=== PATIENT | female | born 1970 | race Two or more races ===

== ENCOUNTER 2019-02-04 10:09 | Emergency (ER) | payer MEDICAID, OTHER ==
[~2019-02-04] VITALS: Ht 170.2 cm; Wt 67.6 kg
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
--- NOTE | 2019-02-04 10:50 | NUR ---
URINE RETRIEVED AND SENT TO LAB.
[2019-02-04 10:58] LABS: APPEARANCE,URINE Clear (CLEAR); BILIRUBIN,URINE Negative (NEGATIVE); BLOOD, URINE Negative Ery/uL (NEGATIVE); COLOR,URINE Yellow (YELLOW); KETONES,URINE Negative (NEGATIVE); LEUKOCYTE ESTERASE ,URINE Negative (NEGATIVE); NITRITE, URINE Negative (NEGATIVE); PROTEIN,URINE Negative (NEGATIVE); UGLUCOSE Negative (NEGATIVE); UROBILINOGEN,URINE 0.2 EU/dL (0.2)
[2019-02-04 10:59] LABS: BASOPHILS % (AUTO) 0.9 % (0.0-2.0); EOSINOPHILS % (AUTO) 0.3 % (0.0-6.0); HEMATOCRIT 40 % (33-45); HEMOGLOBIN 12.9 g/dL (11.5-14.8); LYMPHOCYTES # (AUTO) 1.5 /CMM (0.8-4.8); LYMPHOCYTES % (AUTO) 35.5 % (20.0-44.0); MEAN CORPUSCULAR HGB CONC 32 g/dl (31.0-36.0); MEAN CORPUSCULAR VOLUME 78 fL (82-100); MONOCYTES # (AUTO) 0.2 /CMM (0.1-1.30); MONOCYTES % (AUTO) 5.5 % (2.0-12.0); NEUTROPHILS # (AUTO) 2.4 /CMM (1.8-8.9); NEUTROPHILS % (AUTO) 57.8 % (43.0-81.0); PLATELET COUNT (AUTO) 412 /CMM (150-450); RED BLOOD CELL COUNT(AUTO) 5.16 MIL/uL (4.0-5.2); WHITE BLOOD COUNT (AUTO) 4.1 K/uL (4.3-11.0)
[2019-02-04 11:05] LABS: CALCIUM, SERUM 8.1 mg/dL (8.5-10.1); CREATININE 0.7 mg/dL (0.6-1.3); POTASSIUM 3.7 mmol/L (3.5-5.1)
[2019-02-04 11:12] LABS: ALBUMIN 3.5 g/dL (3.4-5.0); BILIRUBIN,DIRECT 0.1 mg/dL (0.0-0.2); BILIRUBIN,TOTAL 0.2 mg/dL (0.2-1.0); TOTAL PROTEIN, SERUM 7.6 g/dL (6.4-8.2)
[2019-02-04 14:33] VITALS: BP 121/73
--- NOTE | 2019-02-04 14:33 | NUR ---
Patient discharged to home in stable condition. Written and verbal after care instructions given. Patient verbalizes understanding of instruction.
== END 2019-02-04 14:34 | disposition home or self-care (01) ==
LOC: ER 10:11
DX: F10.129 Alcohol abuse with intoxication, unspecified (principal); I10 Essential (primary) hypertension; E11.9 Type 2 diabetes mellitus without complications; Y90.8 Blood alcohol level of 240 mg/100 ml or more
CPT/HCPCS: 36415; 80048-TC; 80076-TC; 80305; 81000-TC; 85025-TC; G0480

== ENCOUNTER 2019-05-14 14:10 | Emergency (ER) | payer MEDICAID, OTHER ==
[~2019-05-14] VITALS: Ht 149.9 cm; Wt 57.6 kg
--- NOTE | 2019-05-14 14:21 | NUR ---
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 KEPT SAFE AND COMFORTABLE.
[2019-05-14 20:00] VITALS: BP 108/76
--- NOTE | 2019-05-14 20:10 | NUR ---
PT AAOX4. AMBULATORY WITH STEADY GAIT.
--- NOTE | 2019-05-14 20:23 | NUR ---
Patient given written and verbal discharge instructions. Patient verbalizes understanding of instructions. Patient is ambulatory with steady gait. Refuses offer of alf placement. Patient given list of available shelters in surrounding area.
== END 2019-05-14 20:24 | disposition home or self-care (01) ==
LOC: ER 14:12
DX: F10.129 Alcohol abuse with intoxication, unspecified (principal); I10 Essential (primary) hypertension; E11.9 Type 2 diabetes mellitus without complications; Z59.0 Homelessness; Y90.9 Presence of alcohol in blood, level not specified
CPT/HCPCS: 82962-TC

== ENCOUNTER 2019-05-15 11:59 | Emergency (ER) | payer OTHER ==
[~2019-05-15] VITALS: Ht 165.1 cm; Wt 69.4 kg
--- NOTE | 2019-05-15 13:52 | NUR ---
Social service consult requested by PAVEL Quintanilla for homelessness and ETOH. Pt. is a 48 year old female with history of alcohol abuse, hypertension and diabetes brought in by ambulance from the streets for acute alcohol intoxication. Pt. was evaluated at [facility] yesterday for the same reason. Pt's clinical history is limited by the patient's intoxicated state. Pt. is alert and oriented x 3. Pt. is able to answer questions with slow and slurred speech. She appears happy and comfortable and tends to smile a lot. Pt. states she has been homeless for a year. 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 Pt. father and she became homeless. Pt. has a sister Jennifer who is also her emergency contact . Pt. requested for SW to call her sister. Pt. drinks vodka daily but could not disclose as to how much she drinks. Pt. was at [facility] for three months in September 2018 and completed the program. However, pt. stated she went right back to drinking. Pt. states she has Depression and takes medication, however doesn't remember the name of the medication. Pt. is willing to go to a group home upon discharge if her sister doesn't call back and she can't go her sister's place. Pt. denies suicidal and homicidal ideations and visual/auditory hallucinations at this time. Pt. was discharged yesterday to a group home but left the group home to resume drinking. SANYA called pt's sister Jennifer and left her a voicemail message requesting a call back. Homeless Waiver to be signed by the pt. when pt. is medically cleared and sober. [facility] Mcfp program list, Homeless resources and alcohol treatment program resources to be provided upon discharge.
--- NOTE | 2019-05-15 14:29 | NUR ---
SANYA received a call back from pt's sister Jennifer . Jennifer informed SW that she has been trying to locate her sister. Per Jennifer, pt. tends to go binge drinking a lot and usually doesn't answer her calls when she is binge drinking. Jennifer informed SW that she has tried to help her sister by allowing her to stay with her and go to AA meetings, however, pt. chooses to go drinking. According to Jennifer, pt. receives $660 in [employer] and $150 in Food stamps per month. Jennifer informed SW that she will pay for two nights at a hotel for her sister and to have her sister call her when she is getting ready to be discharged. SANYA to inform pt's RN in ED. Addendum: 05/15/19 at 1446 by SILVANO SEGUNDO SANYA updated ED RAMYA Mo with aforementioned information.
--- NOTE | 2019-05-15 19:30 | NUR ---
ASSUMED PT CARE. PT IN BED SLEEPING. EASILY ARROUSABLE
[2019-05-15 20:08] VITALS: BP 117/67
--- NOTE | 2019-05-15 20:08 | NUR ---
Patient discharged to home in stable condition. Written and verbal after care instructions given. Patient verbalizes understanding of instruction. Pt ambulatory with a steady gait
== END 2019-05-15 20:08 | disposition home or self-care (01) ==
LOC: ER 12:00
DX: F10.229 Alcohol dependence with intoxication, unspecified (principal); I10 Essential (primary) hypertension; E11.9 Type 2 diabetes mellitus without complications; Y90.9 Presence of alcohol in blood, level not specified; Z59.0 Homelessness

== ENCOUNTER 2019-05-20 08:54 | Emergency (ER) | payer OTHER ==
[~2019-05-20] VITALS: Ht 165.1 cm; Wt 69.4 kg
--- NOTE | 2019-05-20 09:00 | NUR ---
BIB RA 878,SLEEPING OUTSIDE [place] WITH EMPTY VODKA BOTTLE AT HER SIDE. PATIENT A/OX3, BREATHING EVEN AND UNLABORED, NO SOB NOTED.
[2019-05-20] MEDS ORDERED: CHLORDIAZEPOXIDE HCL 25 MG CAPSULE PO ONE (12:30)
[2019-05-20] MEDS ORDERED: CHLORDIAZEPOXIDE HCL 25 MG CAPSULE ONE (12:38)
--- NOTE | 2019-05-20 12:45 | NUR ---
REGISTERED SALES ASSISTANT received a call from JOEL Haro in ED requesting for REGISTERED SALES ASSISTANT to evaluate pt. for homelessness and alcohol intoxication. Per MD notes, pt. is a 48 year old female with a history of alcoholism was brought to [facility] by EMS for intoxication. REGISTERED SALES ASSISTANT met with the pt. bedside. Pt. is alert and oriented x 2. REGISTERED SALES ASSISTANT is familiar with the pt. from several ED visits for the same complaints. Pt. admits to drinking a bottle of vodka this AM. Pt. is ambulatory with an unsteady gait and is not ready for discharge as of yet. Pt. is still intoxicated. REGISTERED SALES ASSISTANT placed homeless resources along with homeless waiver in the chart and requested for JOEL Haro to give to the pt when she is sober and ready for discharge. No other social service needs are requested at this time.
[2019-05-20 19:00] VITALS: BP 110/64
--- NOTE | 2019-05-20 19:05 | NUR ---
Patient discharged to home in stable condition. Written and verbal after care instructions given. Patient verbalizes understanding of instruction.
== END 2019-05-20 19:06 | disposition home or self-care (01) ==
LOC: ER 08:54
DX: F10.129 Alcohol abuse with intoxication, unspecified (principal); I10 Essential (primary) hypertension; E11.9 Type 2 diabetes mellitus without complications; Z60.2 Problems related to living alone; Y90.9 Presence of alcohol in blood, level not specified

== ENCOUNTER 2020-06-20 17:43 | Emergency (ER) | payer OTHER ==
[~2020-06-20] VITALS: Ht 170.2 cm; Wt 68.0 kg
--- NOTE | 2020-06-20 17:43 | NUR ---
PT BIBRA 78 C/O ETOH "FOUND A BOTTLE OF VODKA ON THE SIDE" PT IS AAOX2, NOT IN RESPIRATORY DISTRESS, HOOKED TO FINAL BLOCK PRESS OPERATOR, KEPT RESTED AND COMFORTABLE. WILL CONTINUE TO MONITOR.
--- NOTE | 2020-06-20 17:57 | NUR ---
SEEN AND EXAMINED BY DOMONIQUE ROJAS NP.
--- NOTE | 2020-06-20 18:07 | NUR ---
URINE SPECIMEN COLLECTED AND SENT TO LAB.
[2020-06-20 18:51] LABS: BASOPHILS % (AUTO) 0.1 % (0.0-2.0); HEMATOCRIT 39 % (33-45); HEMOGLOBIN 12.7 g/dL (11.5-14.8); LYMPHOCYTES # (AUTO) 1.5 /CMM (0.8-4.8); MEAN CORPUSCULAR HGB CONC 33 g/dl (31.0-36.0); MEAN CORPUSCULAR VOLUME 99 fL (82-100); MONOCYTES # (AUTO) 0.5 /CMM (0.1-1.30); MONOCYTES % (AUTO) 11.8 % (2.0-12.0); NEUTROPHILS # (AUTO) 1.9 /CMM (1.8-8.9); NEUTROPHILS % (AUTO) 49.1 % (43.0-81.0); PLATELET COUNT (AUTO) 184 /CMM (150-450); RED BLOOD CELL COUNT(AUTO) 3.95 MIL/uL (4.0-5.2); WHITE BLOOD COUNT (AUTO) 3.8 K/uL (4.3-11.0)
[2020-06-20 18:57] LABS: BILIRUBIN,URINE NEGATIVE (NEGATIVE); COLOR,URINE YELLOW (YELLOW); LEUKOCYTE ESTERASE ,URINE NEGATIVE (NEGATIVE); NITRITE, URINE NEGATIVE (NEGATIVE); PROTEIN,URINE NEGATIVE (NEGATIVE); UGLUCOSE NEGATIVE (NEGATIVE); UROBILINOGEN,URINE 0.2 EU/dL (0.2)
[2020-06-20 19:07] LABS: CALCIUM, SERUM 9.2 mg/dL (8.5-10.1); CARBON DIOXIDE 31 mmol/L (21-32); CHLORIDE 106 mmol/L (98-107); CREATININE 0.7 mg/dL (0.6-1.3); GLUCOSE 97 mg/dL (74-106); POTASSIUM 3.5 mmol/L (3.5-5.1); SODIUM SERUM 145 mmol/L (136-145); UREA NITROGEN, BLOOD 15 mg/dL (7-18)
[2020-06-20 19:14] LABS: ALANINE AMINOTRANSFERASE 39 U/L (12-78); ALBUMIN 3.8 g/dL (3.4-5.0); ALCOHOL, BLOOD 518 mg/dL (0-0); ALKALINE PHOSPHATASE 88 U/L (46-116); ASPARTATE AMINOTRANSFERASE 36 U/L (15-37); BILIRUBIN,DIRECT 0.1 mg/dL (0.0-0.2); BILIRUBIN,TOTAL 0.2 mg/dL (0.2-1.0); TOTAL PROTEIN, SERUM 7.9 g/dL (6.4-8.2)
[2020-06-20 19:22] LABS: ACETAMINOPHEN 0 ug/ml (10-30)
--- NOTE | 2020-06-20 22:48 | NUR ---
PATIENT PASSES TRIAL OF AMBULATION.
--- NOTE | 2020-06-20 22:51 | NUR ---
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 WILL BE HERE IN 15 MINUTES.
--- NOTE | 2020-06-20 23:05 | NUR ---
Patient discharged to home in stable condition. Written and verbal after care instructions given. Patient verbalizes understanding of instruction.
--- NOTE | 2020-06-20 23:05 | NUR ---
IV removed. Catheter intact and site benign. Pressure and 4x4 applied to site. No bleeding noted.
--- NOTE | 2020-06-20 23:08 | NUR ---
PICKED UP BY
[2020-06-20 23:09] VITALS: BP 123/74
== END 2020-06-20 23:09 | disposition home or self-care (01) ==
LOC: ER 17:48
DX: F10.129 Alcohol abuse with intoxication, unspecified (principal); I10 Essential (primary) hypertension; E11.9 Type 2 diabetes mellitus without complications; Y90.8 Blood alcohol level of 240 mg/100 ml or more; Z60.2 Problems related to living alone
CPT/HCPCS: 36415; 71045-TC; 80048-TC; 80076-TC; 84484-TC; 85025-TC; G0480

== ENCOUNTER 2020-07-20 09:44 | Emergency (ER) | payer OTHER ==
[~2020-07-20] VITALS: Ht 170.2 cm; Wt 68.0 kg
--- NOTE | 2020-07-20 09:50 | NUR ---
bibra39, homeless, etoh, BS 119, on room air, breathing evenly and unlabored. kept comfortable, will continue to monitor accordingly.
--- NOTE | 2020-07-20 09:54 | NUR ---
SEEN AND EXAMINED BY .
--- NOTE | 2020-07-20 14:40 | NUR ---
SS Consult: SS consult requested for homelessness & ETOH. SW met with pt. bedside. The pt. is alert & oriented x 3. Pt. is still intoxicated. Pt. appears unkempt and does not make appropriate eye contact. Pt. unable to provide Hx. Pt. denies SI/HI and denies any hallucinations. Pt. denies being homeless. Pt. 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 Pt. stated she resides with her fidelma and provided his contact information: Reza Sinha [phone]. Pt. gave SW verbal consent to speak with Reza. SW called Reza to gather collateral information & discuss discharge planning. Reza is agreeable and stated pt. resides with him at [[address] [facility] [address]] and can return there once ready for discharge. SW inquired about pt.s ETOH consumption. Per Reza, he has known the pt. for about 1.5 years and pt. has stated that drinking has been a problem for the last 5 years, per Reza. Per Reza, the pt.s most recent drinking binge has lasted about 2 weeks. Per Reza, pt.s drink of choice is Vodka and pt. drinks daily. Per Reza, the pt.s amount of Vodka she consumes daily varies and Reza is unable to specify. Per Reza, the has had a few recent losses in the family and feel that has negative contributed to her drinking habits. Per Reza, the pt.s father 2 years ago, the father of the pt.s son 1 year ago and pt.s nephew 4 months ago. Plan: Pt. will be discharged to home with ever [[address] [facility] [address]] once ready for discharge. SANYA offered Reza addiction resources for pt. and he is agreeable. Per Reza, he has already called [facility] in [place] [phone]; Kari Santiago [phone]; Tracey Spivey [[address] [place] [address] ]; and [place] [[address] [place] [address] ] regarding inpatient rehab services. SW emailed Reza Sinha ([email or web address]) a list of addiction resources, Sober livings, and mental health resources for pt. including: [facility] Substance Abuse Helpline([facility])-[facility] Outpatient treatment, residential treatment, recovery support for youth and adults [facility] www.actionfamilycounseling.[employer] [facility] Teen programs for drug/alcohol education and support [facility] [place]. Program for adults, sliding scale provides support and education JuliannQuadia Online Video www.Yippy.Spontaneously [facility]; Outpatient/residential treatment programs; transition to sober living [facility] www.cri-help.org [place]; Outpatient and residential treatment programs; transition to sober living I-ADARP Inter [facility] [place]; Outpatient education and supportive programs for teens and adults [facility] www.oasiswomensrecgreenwood county hospitaly.org [place]; Residential treatment and work program for females only [facility] www.[facility] medical centerelmenusselect [facility].Spontaneously [place]: Outpatient/residential treatment program for teens and young adults [facility] www.[facility].org Tarza Detox, inpatient, outpatient for adults and youth [facility]. [place]; Outpatient programs and referrals to community residential programs. Alcoholics Anonymous -SFV information and meeting and schedules www.aa-intergroup.org Gj-Vkyu-Diutdzg https://al-anon.org/ [place] support groups for family of alcoholics Womens Sober Living Homes: [facility] x [address] [place], [place] [facility] Mental Health resources provided: [facility] [address] [facility] [place], [place] [id number] ; [facility] Mental Health [place] [address] [facility] [address], [place] [address] ; [facility] Mental [facility] [address] [facility] [address] [place] [address] ; [facility] [place], [place] [phone] Counseling--Outpatient [facility] [address] [place] [address] (Specializes in in-depth psychotherapy for emotional distress: anxiety, depression, interpersonal conflicts, life transitions, childhood abuse) [facility] [address] [place] [address] (Assist with solving problem marital difficulties, separation & divorce, aging parents, & grief, chronic & terminal illness) [facility] [address] [place] [address] (Deal with loss & grief, anxiety, marital difficulties) [facility] [address] [place], [place] [address] [facility] Partial Hospitalization and Intensive Outpatient Program (Managed Care and [place] Only)[address] [facility] [phone] [facility] Partial Hospitalization and Outpatient [id number] [place], [place] [phone] [facility] Mental Health [place] [id number] [facility]. [address] [place], [place] [phone] [facility] Partial Hospitalization and Outpatient [id number] Emelita [facility] Rosendo Mays [phone]
--- NOTE | 2020-07-20 14:42 | NUR ---
Dax: Reza Sinha [phone] can diamond picker pt. when she is medically cleared. Pt. resides with Dax at [[address] [facility] [address]].
--- NOTE | 2020-07-20 15:25 | NUR ---
PT ABLE TO AMBULATE STRAIGHT WITHOUT ASSISTANCE. AWARE.
--- NOTE | 2020-07-20 15:28 | NUR ---
Patient discharged to home in stable condition. Written and verbal after care instructions given. Patient verbalizes understanding of instruction.
[2020-07-20 15:29] VITALS: BP 121/78
== END 2020-07-20 15:29 | disposition home or self-care (01) ==
LOC: ER 09:44
DX: F10.129 Alcohol abuse with intoxication, unspecified (principal); I10 Essential (primary) hypertension; E11.9 Type 2 diabetes mellitus without complications; Y90.9 Presence of alcohol in blood, level not specified; Z59.0 Homelessness; Z60.2 Problems related to living alone

== ENCOUNTER 2021-05-11 21:20 | Emergency (ER) | payer OTHER ==
[~2021-05-11] VITALS: Ht 170.2 cm; Wt 67.1 kg
--- NOTE | 2021-05-11 21:27 | NUR ---
ALY C/O LOW O2 AT [facility] @92. PER TRIAGE 96% ON R/A. [employer] AT PT'S SIDE.
[2021-05-11] MEDS ORDERED: CHLORDIAZEPOXIDE HCL 25 MG CAPSULE ONE (21:46)
[2021-05-11] MEDS ORDERED: CHLORDIAZEPOXIDE HCL 25 MG CAPSULE PO ONE (22:00)
--- NOTE | 2021-05-11 23:35 | NUR ---
Patient discharged to home in stable condition. Written and verbal after care instructions given. Patient verbalizes understanding of instruction. PT ambulatory with a steady gait WITH [employer]
[2021-05-11 23:41] VITALS: BP 153/87
== END 2021-05-11 23:41 | disposition left against medical advice (07) ==
LOC: ER 22:22
DX: Z20.822 Contact with and (suspected) exposure to COVID-19 (principal); F10.139 Alcohol abuse with withdrawal, unspecified; E89.0 Postprocedural hypothyroidism; Z79.890 Hormone replacement therapy; I10 Essential (primary) hypertension
CPT/HCPCS: 82962; 87426; 99283; C9803

== ENCOUNTER 2021-10-19 13:30 | Emergency (ER) | payer OTHER ==
[~2021-10-19] VITALS: Ht 170.2 cm; Wt 2.5 kg
[2021-10-19] MEDS ORDERED: ACETAMINOPHEN ES 500 MG TABLET PO ONE (16:00)
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
[2021-10-19] MEDS ORDERED: IBUP-1957 PO (17:02)
[2021-10-19] MEDS ORDERED: ACET-2605 PO (17:02)
[2021-10-19] MEDS ORDERED: ACETAMINOPHEN ES 500 MG TABLET ONE (18:43)
[2021-10-19] MEDS ORDERED: diphenhydrAMINE HCL 25 MG CAPSULE ONE (20:21)
--- NOTE | 2021-10-19 20:27 | NUR ---
Patient discharged to home in stable condition. Written and verbal after care instructions given. Patient verbalizes understanding of instruction.
[2021-10-19] MEDS ORDERED: diphenhydrAMINE HCL 25 MG CAPSULE PO ONE (20:30)
[2021-10-19 20:37] VITALS: BP 130/89
== END 2021-10-19 20:37 | disposition home or self-care (01) ==
LOC: ER 13:33
DX: T74.21XA Adult sexual abuse, confirmed, initial encounter (principal); F10.129 Alcohol abuse with intoxication, unspecified; R51.9 Headache, unspecified; M25.551 Pain in right hip; I10 Essential (primary) hypertension; E11.9 Type 2 diabetes mellitus without complications; Z79.899 Other long term (current) drug therapy; Y90.9 Presence of alcohol in blood, level not specified
CPT/HCPCS: 70450; 73502; 73552; 99284; Q0163

== ENCOUNTER 2021-10-25 12:40 | Emergency (ER) | payer OTHER ==
[~2021-10-25] VITALS: Ht 167.6 cm; Wt 73.2 kg
[~2021-10-25 12:40] MED LIST: ACET-2605 PO; IBUP-1957 PO
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
--- NOTE | 2021-10-25 13:42 | NUR ---
paged social media job titles to give homeless intermediate resources for the pt
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
--- NOTE | 2021-10-25 14:44 | NUR ---
PT WAS PENDING DISCHARGE AND LEFT WITHOUT SIGNING PAPER.PT WAS GIVEN VERBAL DISCHARGE INSTRUCTION PRIOR AND WAS ASKED TO WAIT FOR PAPERS TO RECIEVE PRESCRIPTION. PT LEFT THE ER IN STABLE CONDITION.
[2021-10-25] MEDS ORDERED: LEVO125T PO (14:57)
[2021-10-25 15:03] VITALS: BP 111/72
== END 2021-10-25 15:03 | disposition home or self-care (01) ==
LOC: ER 12:50
DX: F10.10 Alcohol abuse, uncomplicated (principal); M06.9 Rheumatoid arthritis, unspecified; E03.9 Hypothyroidism, unspecified; Z76.0 Encounter for issue of repeat prescription; I10 Essential (primary) hypertension; I25.2 Old myocardial infarction; E11.9 Type 2 diabetes mellitus without complications; Z90.89 Acquired absence of other organs; Z60.2 Problems related to living alone; Z79.899 Other long term (current) drug therapy; Y90.9 Presence of alcohol in blood, level not specified

== ENCOUNTER 2021-10-28 12:02 | Emergency (ER) | payer OTHER ==
[~2021-10-28] VITALS: Ht 170.2 cm; Wt 65.8 kg
[~2021-10-28 12:02] MED LIST changes: +LEVO125T PO
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
--- NOTE | 2021-10-28 14:01 | NUR ---
COVID SWAB DONE AND AND URINE COLLECTED SENT TO LAB
--- NOTE | 2021-10-28 14:10 | NUR ---
IT SPECIALIST AT BEDSIDE FOR BLOOD DRAW
[2021-10-28 14:36] LABS: BASOPHILS % (AUTO) 0.4 % (0.0-2.0); EOSINOPHILS % (AUTO) 0.7 % (0.0-6.0); HEMATOCRIT 38 % (33-45); HEMOGLOBIN 12.7 g/dL (11.5-14.8); LYMPHOCYTES # (AUTO) 1.2 K/uL (0.8-4.8); LYMPHOCYTES % (AUTO) 26.9 % (20.0-44.0); MEAN CORPUSCULAR HGB CONC 33 g/dl (31.0-36.0); MEAN CORPUSCULAR VOLUME 82 fL (82-100); MONOCYTES # (AUTO) 0.4 K/uL (0.1-1.30); MONOCYTES % (AUTO) 9.5 % (2.0-12.0); NEUTROPHILS # (AUTO) 2.8 K/uL (1.8-8.9); NEUTROPHILS % (AUTO) 62.5 % (43.0-81.0); PLATELET COUNT (AUTO) 143 K/uL (150-450); RED BLOOD CELL COUNT(AUTO) 4.63 MIL/uL (4.0-5.2); WHITE BLOOD COUNT (AUTO) 4.4 K/uL (4.3-11.0)
[2021-10-28 14:44] LABS: CALCIUM, SERUM 8.6 mg/dL (8.5-10.1); CARBON DIOXIDE 30 mmol/L (21-32); CHLORIDE 106 mmol/L (98-107); CREATININE 0.6 mg/dL (0.6-1.3); GLUCOSE 103 mg/dL (74-106); POTASSIUM 2.9 mmol/L (3.5-5.1); SODIUM SERUM 146 mmol/L (136-145); UREA NITROGEN, BLOOD 10 mg/dL (7-18)
[2021-10-28 14:50] LABS: BILIRUBIN,URINE NEGATIVE (NEGATIVE); COLOR,URINE YELLOW (YELLOW); LEUKOCYTE ESTERASE ,URINE NEGATIVE (NEGATIVE); NITRITE, URINE NEGATIVE (NEGATIVE); PROTEIN,URINE NEGATIVE (NEGATIVE); UGLUCOSE NEGATIVE (NEGATIVE); UROBILINOGEN,URINE 0.2 EU/dL (0.2)
[2021-10-28 15:01] LABS: ALANINE AMINOTRANSFERASE 88 U/L (12-78); ALBUMIN 3.3 g/dL (3.4-5.0); ALCOHOL, BLOOD 478 mg/dL (0-0); ALKALINE PHOSPHATASE 150 U/L (46-116); ASPARTATE AMINOTRANSFERASE 130 U/L (15-37); BILIRUBIN,DIRECT 0.1 mg/dL (0.0-0.2); BILIRUBIN,TOTAL 0.3 mg/dL (0.2-1.0); TOTAL PROTEIN, SERUM 7.1 g/dL (6.4-8.2)
[2021-10-28 15:03] LABS: ACETAMINOPHEN < 10 ug/ml (10-30)
--- NOTE | 2021-10-28 15:35 | NUR ---
Please fax clinicals to [facility], once alcohol level goes down and pt. is medically cleared.
[2021-10-28 16:09] LABS: BACTERIA,URINE None seen /HPF (None Seen); MUCUS,URINE Few /LPF (None Seen); RBC,URINE 0-2 /HPF (0-2); SQUAMOUS EPITHELIAL CELL,UR 0-2 /HPF (None Seen); URINE AMORPHOUS URATE Few /HPF (None Seen); WBC,URINE 0-2 /HPF (0-3)
[2021-10-28] MEDS ORDERED: POTASSIUM CHLORIDE 20 MEQ TAB.PRT.SR PO ONE (17:29)
[2021-10-28] MEDS: IV PREMIX D5 1/2NS + KCL 1,000 ML IV ONE (17:53)
[2021-10-28] MEDS: POTASSIUM CHLORIDE 20 MEQ TAB.PRT.SR PO ONE (17:53)
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
--- NOTE | 2021-10-28 21:33 | NUR ---
VERBAL ORDER FROM DR GALLEGOS, MOTRIN 400MG PO FOR PAIN
[2021-10-28] MEDS ORDERED: IBUPROFEN 400 MG TABLET ONE (21:35)
[2021-10-28] MEDS: IBUPROFEN 400 MG TABLET PO ONE (21:37)
[2021-10-29 02:43] LABS: CALCIUM, SERUM 8.1 mg/dL (8.5-10.1); CREATININE 0.6 mg/dL (0.6-1.3); POTASSIUM 3.3 mmol/L (3.5-5.1)
--- NOTE | 2021-10-29 03:20 | NUR ---
CLINICALS FAXED TO [facility]
--- NOTE | 2021-10-29 05:43 | NUR ---
ACEPTED TO [facility] UNDER DR CHAWLA RN REPORT NUMBER [phone] EXT [phone] .
--- NOTE | 2021-10-29 07:08 | NUR ---
REPORT TO BE GIVEN AFTER CHANGE OF SHIFT
[2021-10-29 07:30] VITALS: BP 134/72
--- NOTE | 2021-10-29 07:55 | NUR ---
REPORT GIVEN TO NURSE STILL FROM [facility].
--- NOTE | 2021-10-29 07:58 | NUR ---
[facility] CALLED FOR TRANSPORT ETA 0915 PER RANJIT
--- NOTE | 2021-10-29 09:31 | NUR ---
PICKED UP BY TRANSPORT IN STABLE CONDITION
== END 2021-10-29 09:45 ==
LOC: ER 13:32
DX: F10.129 Alcohol abuse with intoxication, unspecified (principal); Y90.8 Blood alcohol level of 240 mg/100 ml or more; R45.851 Suicidal ideations; E87.6 Hypokalemia; Z20.822 Contact with and (suspected) exposure to COVID-19; I25.2 Old myocardial infarction; I10 Essential (primary) hypertension; E89.0 Postprocedural hypothyroidism; Z85.850 Personal history of malignant neoplasm of thyroid; Z79.890 Hormone replacement therapy; E11.9 Type 2 diabetes mellitus without complications
CPT/HCPCS: 36415 ×2; 80048 ×2; 80076; 80143; 80307; 80320 ×2; 81001; 82962; 85025; 87426; 96365; 96366; 99285; C9803; J3490; G0480

== ENCOUNTER 2023-08-22 00:21 | Emergency (ER) | payer OTHER ==
[~2023-08-22] VITALS: Ht 170.2 cm; Wt 68.0 kg
[2023-08-22] MEDS ORDERED: IBUPROFEN 400 MG TABLET ONE (01:02)
[2023-08-22] MEDS: IBUPROFEN 400 MG TABLET PO ONE (01:05)
[2023-08-22 02:20] VITALS: BP 132/70; TEMP 98.1; O2SAT 99
== END 2023-08-22 02:21 | disposition home or self-care (01) ==
LOC: ER 00:25
DX: S13.4XXA Sprain of ligaments of cervical spine, initial encounter (principal); S39.012A Strain of muscle, fascia and tendon of lower back, initial encounter; S09.8XXA Other specified injuries of head, initial encounter; Z90.89 Acquired absence of other organs; E11.9 Type 2 diabetes mellitus without complications; I10 Essential (primary) hypertension; Y04.0XXA Assault by unarmed brawl or fight, initial encounter; W01.0XXA Fall on same level from slipping, tripping and stumbling without subsequent striking against object, initial encounter; Y93.89 Activity, other specified; Y92.89 Other specified places as the place of occurrence of the external cause; Y99.8 Other external cause status
CPT/HCPCS: 70486-TC; 72125-TC; 72131-TC

== ENCOUNTER 2023-10-25 21:07 | Emergency (ER) | payer OTHER ==
[~2023-10-25] VITALS: Ht 170.2 cm; Wt 61.2 kg
[2023-10-26 00:10] VITALS: TEMP 98.6
[2023-10-26 06:50] VITALS: BP 118/68; O2SAT 98
== END 2023-10-26 07:00 | disposition home or self-care (01) ==
LOC: ER 21:14
DX: F10.129 Alcohol abuse with intoxication, unspecified (principal); I10 Essential (primary) hypertension; E11.9 Type 2 diabetes mellitus without complications; E03.9 Hypothyroidism, unspecified; Z90.89 Acquired absence of other organs; Y90.9 Presence of alcohol in blood, level not specified

== ENCOUNTER 2023-10-27 12:20 | Emergency (ER) | payer OTHER ==
[~2023-10-27] VITALS: Ht 170.2 cm; Wt 64.0 kg
[2023-10-27 12:45] VITALS: TEMP 98.2
[2023-10-27 14:05] LABS: APPEARANCE,URINE CLEAR (CLEAR); BILIRUBIN,URINE NEGATIVE (NEGATIVE); BLOOD, URINE NEGATIVE Ery/uL (NEGATIVE); COLOR,URINE YELLOW (YELLOW); KETONES,URINE NEGATIVE (NEGATIVE); LEUKOCYTE ESTERASE ,URINE NEGATIVE (NEGATIVE); NITRITE, URINE NEGATIVE (NEGATIVE); PROTEIN,URINE NEGATIVE (NEGATIVE); UGLUCOSE NEGATIVE (NEGATIVE); UROBILINOGEN,URINE 0.2 EU/dL (0.2)
[2023-10-27 14:09] LABS: BASOPHILS # (AUTO) 0.1 K/uL (0.0-0.2); BASOPHILS % (AUTO) 1.5 % (0.0-2.0); EOSINOPHILS % (AUTO) 0.4 % (0.0-6.0); HEMATOCRIT 25 % (33-45); HEMOGLOBIN 7.6 g/dL (11.5-14.8); LYMPHOCYTES # (AUTO) 1.7 K/uL (0.8-4.8); LYMPHOCYTES % (AUTO) 45.8 % (20.0-44.0); MEAN CORPUSCULAR HEMOGLOBIN 20 PG (26.0-33.0); MEAN CORPUSCULAR HGB CONC 30 g/dl (31.0-36.0); MEAN CORPUSCULAR VOLUME 66 fL (82-100); MONOCYTES # (AUTO) 0.2 K/uL (0.1-1.30); MONOCYTES % (AUTO) 6.4 % (2.0-12.0); NEUTROPHILS # (AUTO) 1.7 K/uL (1.8-8.9); NEUTROPHILS % (AUTO) 45.9 % (43.0-81.0); PLATELET COUNT (AUTO) 330 K/uL (150-450); RED BLOOD CELL COUNT(AUTO) 3.84 MIL/uL (4.0-5.2); WHITE BLOOD COUNT (AUTO) 3.6 K/uL (4.3-11.0)
[2023-10-27 14:15] LABS: AMPHETAMINE, URINE NEGATIVE (NEGATIVE); BARBITURATE, URINE NEGATIVE (NEGATIVE); CANNABINOID, URINE NEGATIVE (NEGATIVE); COCCAINE, URINE NEGATIVE (NEGATIVE); OPIATE, URINE NEGATIVE (NEGATIVE); PHENCYCLIDINE SCREEN,URINE NEGATIVE (NEGATIVE)
[2023-10-27 14:15] LABS: CALCIUM, SERUM 8.8 mg/dL (8.5-10.1); CREATININE 0.6 mg/dL (0.6-1.3); POTASSIUM 4.1 mmol/L (3.5-5.1)
[2023-10-27 14:24] LABS: BENZODIAZEPINE, URINE POSITIVE (NEGATIVE)
[2023-10-27 14:30] LABS: ALBUMIN 3.1 g/dL (3.4-5.0); BILIRUBIN,DIRECT 0.1 mg/dL (0.0-0.2); BILIRUBIN,TOTAL 0.3 mg/dL (0.2-1.0); TOTAL PROTEIN, SERUM 7.4 g/dL (6.4-8.2)
[2023-10-28] MEDS ORDERED: LORAZEPAM 1 MG TABLET ONE (07:28)
[2023-10-28 07:30] VITALS: BP 126/77; O2SAT 99
[2023-10-28] MEDS: LORAZEPAM 1 MG TABLET PO ONE (07:31)
== END 2023-10-28 17:07 ==
LOC: ER 12:20
DX: R45.851 Suicidal ideations (principal); F10.129 Alcohol abuse with intoxication, unspecified; G89.29 Other chronic pain; I10 Essential (primary) hypertension; E11.9 Type 2 diabetes mellitus without complications; Z85.850 Personal history of malignant neoplasm of thyroid; Z90.89 Acquired absence of other organs; Z59.00 Homelessness unspecified; Z20.822 Contact with and (suspected) exposure to COVID-19; Y90.8 Blood alcohol level of 240 mg/100 ml or more
CPT/HCPCS: 36415; 80048-TC; 80076-TC; 85025-TC; G0480

== ENCOUNTER 2024-01-16 15:53 | Emergency (ER) | payer OTHER | END 2024-01-16 16:15 | disposition left against medical advice (07) | LOC: ER 15:55 | DX: Z53.21 Procedure and treatment not carried out due to patient leaving prior to being seen by health care provider (principal) ==

== ENCOUNTER 2024-01-21 15:44 | Emergency (ER) | payer OTHER ==
[~2024-01-21] VITALS: Ht 170.2 cm; Wt 59.0 kg
[2024-01-21] MEDS: IV NS 0.9% 1,000 ML BAG IV ONE (16:30)
[2024-01-21 16:44] LABS: BASOPHILS # (AUTO) 0.1 K/uL (0.0-0.2); BASOPHILS % (AUTO) 0.7 % (0.0-2.0); EOSINOPHILS % (AUTO) 0.4 % (0.0-6.0); HEMATOCRIT 44 % (33-45); HEMOGLOBIN 14.3 g/dL (11.5-14.8); LYMPHOCYTES % (AUTO) 26.8 % (20.0-44.0); MEAN CORPUSCULAR HEMOGLOBIN 28 PG (26.0-33.0); MEAN CORPUSCULAR HGB CONC 33 g/dl (31.0-36.0); MEAN CORPUSCULAR VOLUME 86 fL (82-100); MONOCYTES # (AUTO) 0.4 K/uL (0.1-1.30); NEUTROPHILS # (AUTO) 5.1 K/uL (1.8-8.9); NEUTROPHILS % (AUTO) 67.1 % (43.0-81.0); PLATELET COUNT (AUTO) 278 K/uL (150-450); RED BLOOD CELL COUNT(AUTO) 5.16 MIL/uL (4.0-5.2); RED CELL DISTRIBUTION WIDTH 21.7 % (11.5-15.0); WHITE BLOOD COUNT (AUTO) 7.6 K/uL (4.3-11.0)
[2024-01-21 16:57] LABS: CALCIUM, SERUM 8.6 mg/dL (8.5-10.1); CARBON DIOXIDE 23 mmol/L (21-32); CHLORIDE 101 mmol/L (98-107); CREATININE 0.7 mg/dL (0.6-1.3); GLUCOSE 194 mg/dL (74-106); POTASSIUM 3.3 mmol/L (3.5-5.1); SODIUM SERUM 137 mmol/L (136-145); UREA NITROGEN, BLOOD 12 mg/dL (7-18)
[2024-01-21 17:05] LABS: ALANINE AMINOTRANSFERASE 59 U/L (12-78); ALBUMIN 3.7 g/dL (3.4-5.0); ALKALINE PHOSPHATASE 258 U/L (46-116); ASPARTATE AMINOTRANSFERASE 76 U/L (15-37); BILIRUBIN,DIRECT 0.1 mg/dL (0.0-0.2); BILIRUBIN,TOTAL 0.4 mg/dL (0.2-1.0); TOTAL PROTEIN, SERUM 7.4 g/dL (6.4-8.2)
[2024-01-21 17:34] LABS: NT-PRO BNP 87 pg/mL (0-125)
[2024-01-21] MEDS ORDERED: KETOROLAC TROMETHAMINE INJ 30 MG/ML VIAL ONE (20:51)
[2024-01-21] MEDS: KETOROLAC TROMETHAMINE INJ 30 MG/ML VIAL IM ONE (20:52)
[2024-01-22 01:03] LABS: APPEARANCE,URINE CLEAR (CLEAR); BILIRUBIN,URINE NEGATIVE (NEGATIVE); BLOOD, URINE NEGATIVE Ery/uL (NEGATIVE); COLOR,URINE YELLOW (YELLOW); KETONES,URINE TRACE mg/dL (NEGATIVE); LEUKOCYTE ESTERASE ,URINE 1+ (NEGATIVE); NITRITE, URINE NEGATIVE (NEGATIVE); PROTEIN,URINE NEGATIVE (NEGATIVE); UGLUCOSE NEGATIVE (NEGATIVE); UROBILINOGEN,URINE 0.2 EU/dL (0.2)
[2024-01-22 01:04] LABS: ADD URINE CULTURE YES; BACTERIA,URINE Few /HPF (None Seen); RBC,URINE 0-2 /HPF (0-2); SQUAMOUS EPITHELIAL CELL,UR Rare /HPF (None Seen)
[2024-01-22 01:16] LABS: AMPHETAMINE, URINE NEGATIVE (NEGATIVE); BARBITURATE, URINE NEGATIVE (NEGATIVE); BENZODIAZEPINE, URINE NEGATIVE (NEGATIVE); CANNABINOID, URINE NEGATIVE (NEGATIVE); COCCAINE, URINE NEGATIVE (NEGATIVE); OPIATE, URINE NEGATIVE (NEGATIVE); PHENCYCLIDINE SCREEN,URINE NEGATIVE (NEGATIVE)
[2024-01-22 07:03] VITALS: TEMP 98.6
[2024-01-22] MEDS ORDERED: LORAZEPAM INJ 2 MG/ML VIAL ONE (10:04)
[2024-01-22] MEDS: LORAZEPAM 4 MG/ML VIAL IV ONE (10:09)
[2024-01-22 11:02] VITALS: BP 145/99; O2SAT 99
== END 2024-01-22 09:33 ==
LOC: ER 15:48
DX: F10.129 Alcohol abuse with intoxication, unspecified (principal); M25.561 Pain in right knee; M25.551 Pain in right hip; R53.1 Weakness; R10.11 Right upper quadrant pain; R42 Dizziness and giddiness; E03.9 Hypothyroidism, unspecified; I10 Essential (primary) hypertension; I25.2 Old myocardial infarction; E11.9 Type 2 diabetes mellitus without complications; Z59.00 Homelessness unspecified; Z85.850 Personal history of malignant neoplasm of thyroid; Z90.89 Acquired absence of other organs; Z20.822 Contact with and (suspected) exposure to COVID-19; W01.0XXA Fall on same level from slipping, tripping and stumbling without subsequent striking against object, initial encounter; Y93.89 Activity, other specified; Y92.89 Other specified places as the place of occurrence of the external cause; Y99.8 Other external cause status; Y90.8 Blood alcohol level of 240 mg/100 ml or more
CPT/HCPCS: 99285; 96372; 96361; 93005; 71045; 76700; 73502; 73564; 85025; 80048; 83690; 80076; 36415 ×2; 84484; 83880; 87426; 80320 ×2; 80307; 96374; 87086; 81001; J1885; J7030; J2060 ×2; G0480